=== PATIENT | male | born 1975 | race Caucasian/White ===

== ENCOUNTER 2019-08-24 10:06 | Outpatient (CLI) | payer OTHER ==
--- NOTE | 2019-08-24 16:38 | ULT ---
ULTRASOUND LEFT ANTERIOR CHEST: 08/24/19 HISTORY: 44-year-old male with pain at left anterior chest. TECHNIQUE: Focused ultrasound of the upper outer aspect of the left anterior chest, more specifically, that port ion of the pectoralis muscle. Ultrasound image of the contralateral right side. FINDINGS: There is no evidence of hematoma, mass or disruption of the pectoralis musculature. No abscess. IMPRESSION: Negative. POS: [facility]
== END 2019-08-24 10:07 | disposition home or self-care (01) ==
LOC: BICULT 10:06
PROVIDERS: ATTEND Family Medicine
DX: M79.622 Pain in left upper arm (principal)
CPT/HCPCS: 76999